=== PATIENT | female | born 1940 | race Caucasian/White ===

== ENCOUNTER 2019-12-15 07:54 | Inpatient (IN) | payer OTHER ==
[~2019-12-15] VITALS: Ht 172.7 cm; Wt 68.0 kg
[~2019-12-15 07:54] MED LIST: ACIDOPHILUS1 EAC1 PO; AMOX1TAB12 PO; ASACOL HD800 MG PO; AVALIDE 150-12.1 TA1 PO; CADUET 10 MG/101 TAB PO; CEFADROXIL500 MG PO; DICLOFENAC SODI50 MG PO; HUMIRA40 MG/0.1 SQ; PERCOCET 5/321 UDTAB PO; PERCOCET 5/3251 TAB PO; SEROQUEL XR50 MG PO; SEROQUEL25 MG PO; XARELTO10 MG PO
[2019-12-15] MEDS ORDERED: MEMANTINE HCL10 MG (08:03)
[2019-12-15] MEDS ORDERED: NEXIUM 24HR20 M1 (08:03)
[2019-12-15] MEDS ORDERED: MIRTAZAPINE15 M1 (08:04)
[2019-12-15] MEDS ORDERED: LORAZEPAM0.5 MG (08:04)
[2019-12-15] MEDS ORDERED: CENTRUM COMPLE1 EACH (08:05)
[2019-12-15] MEDS ORDERED: MESALAMINE800 MG (08:05)
[2019-12-15] MEDS ORDERED: PEPCID AC10 MG (08:05)
[2019-12-15] MEDS ORDERED: AMLODIPINE BESYL5 MG (08:05)
[2019-12-15] MEDS ORDERED: VITAMIN D-40010 MCG (08:06)
[2019-12-23] MEDS ORDERED: NORVASC2.5 M1 PO (09:58)
[2019-12-23] MEDS ORDERED: AMOX-CLAV 875-1 EACH PO (09:58)
[2019-12-23] MEDS ORDERED: INTESTINEX680 M2 PO (09:58)
== END 2019-12-23 13:51 | disposition home or self-care (01) | DRG 565 ==
LOC: ER 07:54 → SURH 15:38
PROVIDERS: ADMIT Internal Medicine; ATTEND Internal Medicine
PROC: BW2GZZZ Computerized Tomography (CT Scan) of Pelvic Region (ICD-10-PCS; 2019-12-16)
PROC: 0J993ZX Drainage of Buttock Subcutaneous Tissue and Fascia, Percutaneous Approach, Diagnostic (ICD-10-PCS; principal; 2019-12-17)
DX: D48.1 Neoplasm of uncertain behavior of connective and other soft tissue (principal); K50.90 Crohn's disease, unspecified, without complications; N39.0 Urinary tract infection, site not specified; W18.30XA Fall on same level, unspecified, initial encounter; I10 Essential (primary) hypertension; G30.9 Alzheimer's disease, unspecified; F02.80 Dementia in other diseases classified elsewhere, unspecified severity, without behavioral disturbance, psychotic disturbance, mood disturbance, and anxiety; M81.0 Age-related osteoporosis without current pathological fracture; Z96.653 Presence of artificial knee joint, bilateral; Z96.643 Presence of artificial hip joint, bilateral

== ENCOUNTER 2021-11-17 12:01 | Emergency (ER) | payer OTHER ==
[~2021-11-17] VITALS: Ht 167.6 cm; Wt 67.1 kg
[~2021-11-17 12:01] MED LIST changes: +AMLODIPINE BESYL5 MG; +AMOX-CLAV 875-1 EACH PO; +CENTRUM COMPLE1 EACH; +INTESTINEX680 M2 PO; +LORAZEPAM0.5 MG; +MEMANTINE HCL10 MG; +MESALAMINE800 MG; +MIRTAZAPINE15 M1; +NEXIUM 24HR20 M1; +NORVASC2.5 M1 PO; +PEPCID AC10 MG; +VITAMIN D-40010 MCG
[2021-11-17] MEDS ORDERED: DONEPEZIL HCL10 MG PO (12:18)
== END 2021-11-17 22:09 | disposition home or self-care (01) ==
LOC: ER 12:01
DX: R19.7 Diarrhea, unspecified (principal); E86.0 Dehydration; K57.90 Diverticulosis of intestine, part unspecified, without perforation or abscess without bleeding; Z91.041 Radiographic dye allergy status

== ENCOUNTER 2022-06-19 11:31 | Inpatient (IN) | payer OTHER ==
[~2022-06-19] VITALS: Ht 165.1 cm; Wt 83.9 kg
[~2022-06-19 11:31] MED LIST changes: +DONEPEZIL HCL10 MG PO
== END 2022-06-22 21:47 | disposition home or self-care (01) | DRG 603 ==
LOC: ER 11:31 → MEDI 18:39
PROVIDERS: ADMIT Internal Medicine; ATTEND Internal Medicine
PROC: BW21ZZZ Computerized Tomography (CT Scan) of Abdomen and Pelvis (ICD-10-PCS; principal; 2022-06-19)
DX: L03.317 Cellulitis of buttock (principal); K50.90 Crohn's disease, unspecified, without complications; B96.5 Pseudomonas (aeruginosa) (mallei) (pseudomallei) as the cause of diseases classified elsewhere; B95.2 Enterococcus as the cause of diseases classified elsewhere; B96.89 Other specified bacterial agents as the cause of diseases classified elsewhere; I10 Essential (primary) hypertension; E78.5 Hyperlipidemia, unspecified; G30.9 Alzheimer's disease, unspecified; F02.80 Dementia in other diseases classified elsewhere, unspecified severity, without behavioral disturbance, psychotic disturbance, mood disturbance, and anxiety; Z20.822 Contact with and (suspected) exposure to COVID-19; Q27.39 Arteriovenous malformation, other site; I72.8 Aneurysm of other specified arteries